=== PATIENT | male | born 1955 | race Caucasian/White ===

== ENCOUNTER → 2016-09-03 | Outpatient (CLI) | payer OTHER | END | disposition home or self-care (01) | LOC: LAB 08:45 | PROVIDERS: ATTEND Family Medicine | DX: Z02.89 Encounter for other administrative examinations (principal) | CPT/HCPCS: G0434 ==

== ENCOUNTER → 2018-05-28 | Outpatient (CLI) | payer OTHER, MEDICARE ==
[2018-05-28 10:35] LABS: Amphetamine Screen, Urine NEGATIVE (NEGATIVE); Barbiturate Scree,Urine NEGATIVE (NEGATIVE); Benzodiazephine Screen, Urine NEGATIVE (NEGATIVE); Cannabinoid Screen, Urine POSITIVE (NEGATIVE); Cocaine Screen, Urine NEGATIVE (NEGATIVE); Opiate Scree,Urine NEGATIVE (NEGATIVE); Phencyclidine Screen, Urine NEGATIVE (NEGATIVE)
== END | disposition home or self-care (01) ==
LOC: LAB 09:46
PROVIDERS: ATTEND Nurse Practitioner
DX: Z02.83 Encounter for blood-alcohol and blood-drug test (principal)
CPT/HCPCS: 80307

== ENCOUNTER → 2018-06-23 | Outpatient (CLI) | payer OTHER, MEDICARE ==
[2018-06-23 10:08] LABS: Basophils # (auto) 0 uL; Eosinophils # (auto) 0.1 uL; Hemoglobin 15.6 g/dL (13.5-17.5); Neutrophils % (auto) 75.4 % (37.0-80.0); Nucleated Red Blood Cells % 0.1 %
[2018-06-23 10:11] LABS: Basophils % (auto) 0.7 % (0.0-2.0); Eosinophils % (auto) 0.9 % (0.0-7.0); Hematocrit 45.1 % (41.0-53.0); Mean Corpuscular Hemoglobin 38.5 pg (28.0-32.0); Mean Corpuscular Hgb Conc. 34.6 g/dL (32.0-36.0); Mean Corpuscular Volume 111.2 fL (80.0-100.0); Monocytes # (auto) 0.6 uL; Neutrophils # (auto) 5.3 uL; Platelet Count (auto) 224 10^3/uL (140-450); Red Blood Cells 4.06 10^6/uL (4.5-5.90); White Blood Cell 7.1 10^3/uL (4.4-10.8)
[2018-06-23 11:18] LABS: Potassium 4.2 mmol/L (3.5-5.1)
[2018-06-23 11:27] LABS: Albumin 3.7 g/dL (3.4-5.0); BUN/Creatinine Ratio 9.1; Bilirubin, Total 0.9 mg/dL (0.2-1.0); Total Protein 7.6 g/dL (6.4-8.2)
[2018-06-25 10:13] LABS: Urine Bacteria NONE SEEN /hpf (None Seen); Urine Blood Negative /uL (Negative); Urine Mucus FEW (None Seen); Urine WBC 1 /hpf (0 - 3)
[2018-06-25 10:26] LABS: Alcohol, Urine < 3.0 mg/dL (0-5); Cannabinoid Screen, Urine NEGATIVE (NEGATIVE)
[2018-06-25 10:28] LABS: Amphetamine Screen, Urine NEGATIVE (NEGATIVE); Barbiturate Scree,Urine NEGATIVE (NEGATIVE); Benzodiazephine Screen, Urine NEGATIVE (NEGATIVE); Cocaine Screen, Urine NEGATIVE (NEGATIVE); Opiate Scree,Urine NEGATIVE (NEGATIVE); Phencyclidine Screen, Urine NEGATIVE (NEGATIVE)
== END | disposition home or self-care (01) ==
LOC: LAB 09:46
PROVIDERS: ATTEND Internal Medicine
DX: Z12.11 Encounter for screening for malignant neoplasm of colon (principal); I10 Essential (primary) hypertension; R74.8 Abnormal levels of other serum enzymes; M50.90 Cervical disc disorder, unspecified, unspecified cervical region
CPT/HCPCS: 36415; 80053; 80061; 80307; 81001; 82270; 84153; 84443; 85025

== ENCOUNTER 2019-05-21 07:43 | Inpatient (IN) | payer OTHER ==
[~2019-05-21] VITALS: Ht 172.7 cm; Wt 45.5 kg
[2019-05-21 08:44] LABS: Basophils # (auto) 0 uL; Basophils % (auto) 0.3 % (0.0-2.0); Eosinophils # (auto) 0 uL; Lymphocytes # (auto) 0.3 uL; Mean Corpuscular Hgb Conc. 34.2 g/dL (32.0-36.0); Nucleated Red Blood Cells % 0.1 %; White Blood Cell 11.9 10^3/uL (4.4-10.8)
[2019-05-21 08:46] LABS: Hematocrit 37.2 % (41.0-53.0); Hemoglobin 12.8 g/dL (13.5-17.5); Lymphocytes % (auto) 2.4 % (10.0-50.0); Mean Corpuscular Volume 110.9 fL (80.0-100.0); Monocytes % (auto) 8.1 % (0.0-12.0); Neutrophils # (auto) 10.6 uL; Neutrophils % (auto) 89.2 % (37.0-80.0); Platelet Count (auto) 211 10^3/uL (140-450); Red Blood Cells 3.36 10^6/uL (4.5-5.90); Red Cell Distribution Width 16.2 % (11.8-14.3)
[2019-05-21 08:58] LABS: Albumin 3.6 g/dL (3.4-5.0); Calcium 8.7 mg/dL (8.5-10.1); Potassium 3.3 mmol/L (3.5-5.1)
[2019-05-21 09:03] LABS: BUN/Creatinine Ratio 14.5; Bilirubin, Total 8.2 mg/dL (0.2-1.0); Total Protein 7.4 g/dL (6.4-8.2)
[2019-05-21] MEDS ORDERED: LABETALOL HCL 5 MG/ML ML 20ML VIAL IV ONE (09:15)
[2019-05-21] MEDS ORDERED: SODIUM CHLORIDE 0.9% 1,000 ML IV ONE (10:00)
[2019-05-21] MEDS ORDERED: ONDANSETRON HCL 4 MG/2 ML VIAL ONE (10:13)
[2019-05-21] MEDS ORDERED: ONDANSETRON HCL 4 MG/2 ML VIAL IV ONE (10:15)
[2019-05-21] MEDS ORDERED: FUROSEMIDE 40 MG/4 ML VIAL IV ONE (10:15)
[2019-05-21] MEDS ORDERED: ASPirin 81 mg TAB PO ONE (10:30)
[2019-05-21] MEDS: ASPirin 325 MG TAB PO SCH ×2 (10:45→15:37)
[2019-05-21] MEDS ORDERED: NITROGLYCERIN 0.4 MG SL TAB SL PRN (10:45)
[2019-05-21 11:13] LABS: Lactic Acid w/Reflex 6.9 mmol/L (0.4-2.0)
[2019-05-21] MEDS: MORPHINE SULF INJ 2 MG/ML SYRINGE 1ML IV PRN (11:33)
--- NOTE | 2019-05-21 11:42 | NUR ---
orders obtained from Dr. Prince 2g sodium cardiac diet. Orders read back and verified.
--- NOTE | 2019-05-21 11:55 | NUR ---
Telemetry admit from ER LEANNEVANNA admitted to Telemetry unit after SBAR received. Patient oriented to Kimi Major, primary RN, unit, room, bed, and unit policies regarding patient care and visiting hours. Patient now on continuous telemetry monitoring, tele box #12 and telemetry reading on arrival to unit is ST. Patient placed on bedside oxygen, weighed by bedscale and encouraged to call if they need something. All questions and concerns addressed, patient verbalized understanding. at bedside.
[2019-05-21 12:30] VITALS: BP 120/57
[2019-05-21 13:11] LABS: Albumin 3.5 g/dL (3.4-5.0); Bilirubin, Direct 2.5 mg/dL (0-0.2)
[2019-05-21] MEDS ORDERED: HYDR-4833 PO (13:12)
[2019-05-21 13:13] LABS: Bilirubin, Total 7.9 mg/dL (0.2-1.0); Total Protein 7.1 g/dL (6.4-8.2)
[2019-05-21] MEDS ORDERED: POTA1TAB61 PO (13:13)
[2019-05-21] MEDS ORDERED: BUME1TAB3 PO (13:18)
[2019-05-21] MEDS ORDERED: FURO20TA3 PO (13:18)
[2019-05-21] MEDS ORDERED: APIX5TAB PO (13:20)
--- NOTE | 2019-05-21 14:40 | NUR ---
Called Dr. Prince, patient' s HR has been sustaining in the high 140's. Blood pressure is as follows, 104/63, patient does not c/o chest pain. patient is diaphoretic. EKG in process.
--- NOTE | 2019-05-21 14:48 | NUR ---
EKG completed, reads abnormal afib with rapid ventricular response , HR at 134. MD aware.
[2019-05-21] MEDS ORDERED: FOLIC ACID 1 MG TAB PO ONE (15:15)
[2019-05-21] MEDS ORDERED: LORazepam 2MG/ML-1ML VIAL IV ONE (15:15)
[2019-05-21] MEDS ORDERED: cloNIDine HCL 0.1 MG TAB PO ONE (15:15)
[2019-05-21] MEDS ORDERED: chlordiazePOXIDE HCL 25 MG CAP PO ONE (15:15)
[2019-05-21] MEDS ORDERED: CEFTRIAXONE SODIUM 2 GM in D5W 5% 50 ML IV SCH (15:45)
--- NOTE | 2019-05-21 15:48 | NUR ---
Dr. Robison at bedside.
[2019-05-21 17:00] VITALS: BP 105/65
[2019-05-21] MEDS ORDERED: THIA100T5 PO (17:27)
[2019-05-21] MEDS ORDERED: cefTRIAXone 1GM/50ML D5W 50 ML IV ONE (17:30)
[2019-05-21] MEDS ORDERED: POTASSIUM CHL 10 Meq TABLET PO SCH (17:45)
[2019-05-21] MEDS ORDERED: FUROSEMIDE 40 MG TAB PO SCH (18:00)
[2019-05-21] MEDS: metroNIDAZOLE 500MG/100ML 100 ML IV SCH (18:16)
--- NOTE | 2019-05-21 19:00 | NUR ---
Opening Shift Note Assumed care of patient, awake and alert. No S/S of distress/SOB or pain. Instructed on POC and to call for assist PRN, will continue to monitor for changes Q1hr and PRN.
--- NOTE | 2019-05-21 19:08 | NUR ---
Closing Note Patient is comfortably resting in bed on 2L NC. No c/o pain, no s/s of distress/SOB noted. Bed at lowest locked position and call light within reach. at bedside. Will endorse care to NOC RN.
[2019-05-21] MEDS: FUROSEMIDE 40 MG TAB PO SCH (20:00)
[2019-05-21] MEDS: FOLIC ACID 1 MG, MULTIPLE VITAMIN 10 ML, MAGNESIUM SULF SDV 50% 8 MEQ, THIAMINE INJ 100... INJ SCH ×5 (20:00)
[2019-05-21] MEDS ORDERED: MAGNESIUM SULFATE 1GM/100ML 100 ML IV ONE (20:00)
--- NOTE | 2019-05-21 20:35 | NUR ---
IV insertion IV access obtained to left AC, via clean sterile technique by inserting 22 gauge catheter after second attempt. IV secured properly. No trauma to site. Patient tolerated well.
[2019-05-21] MEDS: cloNIDine HCL 0.1 MG TAB PO SCH (21:44)
[2019-05-21] MEDS: chlordiazePOXIDE HCL 25 MG CAP PO PRN (21:56)
[2019-05-21] MEDS: POTASSIUM CHL 20 Meq TABLET PO SCH (21:56)
[2019-05-21 22:00] VITALS: BP 95/72
[2019-05-22] MEDS: LORazepam 2MG/ML-1ML VIAL IV PRN ×3 (00:16→21:05)
--- NOTE | 2019-05-22 00:37 | NUR ---
Care endorsed to Florinda MARCUS.
--- NOTE | 2019-05-22 01:30 | NUR ---
Opening Shift Note: A&Ox4, but very drowsy. Currently on 2LO2 via NC, doesn't wear at home; pain level 0/10; and currently is moderate assist to the bathroom without assistive devices. Bed locked in lowest position, side rails up x2, call light within reach, and bed alarm on for patient safety. IV 22 g in left AC IID inserted on 05/21/19 and IV 20 g in right upper arm running a banana bag at 126 ml/hr inserted on 05/21/19. Skin: generalized bruising present. Patient's HR is very tachycardic, per report, patient's HR has been sustaining in the 150s. Will get updated EKG and vital signs.
[2019-05-22] MEDS: metroNIDAZOLE 500MG/100ML 100 ML IV SCH ×3 (01:52→18:04)
--- NOTE | 2019-05-22 02:00 | NUR ---
Page sent to Dr. [place] cosmetics and toiletries salesperson: Page sent for EKG: sinus tachycardia with short DE interval; left axis deviation; inferior infarct, age undetermined; abnormal EKG. Current vitals: temp 98.6, BP 112/76, RR 18, O2 94 % on 2LO2, HR 152, pain 0/10. Will await page return for possible orders.
--- NOTE | 2019-05-22 02:30 | NUR ---
Second page and page return: Page sent to Dr. Mao, search engine optimization strategist physician for Dr. Prince, for HR sustaining in the 150s. New order received for metoprolol 25 mg once. Will give and reassess patient status.
[2019-05-22] MEDS ORDERED: METOPROLOL TARTRATE 25 MG TAB ONE (02:49)
[2019-05-22] MEDS ORDERED: METOPROLOL TARTRATE 25 MG TAB PO ONE (03:00)
--- NOTE | 2019-05-22 04:30 | NUR ---
Page sent to Dr. Mao with [facility]: Patient's HR still sustaining in the 150s with no pain present after 25 mg of metoprolol PO given. Page sent for possible orders.
[2019-05-22 05:00] VITALS: BP 104/72
--- NOTE | 2019-05-22 05:00 | NUR ---
Another page sent to Dr. Mao at [facility] in regards to patient's HR sustaining in the 150s after 25 mg of metoprolol PO given. Will await page return for possible orders. Patient is still asymptomatic.
--- NOTE | 2019-05-22 05:24 | NUR ---
Page sent to sap consultant hospitalist for possible orders; unable to contact sap consultant heritage physician at this time.
--- NOTE | 2019-05-22 05:54 | NUR ---
Page return from Dr. Mao; no new orders at this time since patient is asymptomatic; page to television repairman hospitalist cancelled. Instructed to page Dr. Cornell at 0700
[2019-05-22] MEDS: FUROSEMIDE 40 MG TAB PO SCH ×2 (06:00→18:00)
--- NOTE | 2019-05-22 06:40 | NUR ---
Page from Dr. Mao: Hold lasix and give 10 mg of cardizem IV once if SBP is greater than 110.
[2019-05-22] MEDS ORDERED: DILTIAZEM HCL 25 MG/5 ML VIAL IV ONE (06:48)
--- NOTE | 2019-05-22 07:00 | NUR ---
Unable to give 10 mg of cardizem IVP once per Dr. Mao because SBP less than 110 per order.
--- NOTE | 2019-05-22 07:15 | NUR ---
Page to Dr. Prince: Per physician, give 30 mg of immediate-release cardizem PO Q6H: parameters hold if HR is less than 60 or if SBP is less than 100. One time dose put in and then Q6H from then. Per Dr. Prince, page sent to Dr. Cornell by day shift RN Gloria, for updated plan of care for cardiology.
[2019-05-22 07:22] LABS: Eosinophils # (auto) 0 uL; Lymphocytes # (auto) 0.8 uL; Mean Corpuscular Hemoglobin 37.4 pg (28.0-32.0); Neutrophils % (auto) 84.3 % (37.0-80.0); Red Blood Cells 3.21 10^6/uL (4.5-5.90)
[2019-05-22 07:25] LABS: Basophils # (auto) 0 uL; Basophils % (auto) 0.1 % (0.0-2.0); Eosinophils % (auto) 0.3 % (0.0-7.0); Hematocrit 36.2 % (41.0-53.0); Lymphocytes % (auto) 6.6 % (10.0-50.0); Mean Corpuscular Hgb Conc. 33.2 g/dL (32.0-36.0); Mean Corpuscular Volume 112.5 fL (80.0-100.0); Monocytes # (auto) 1.1 uL; Monocytes % (auto) 8.7 % (0.0-12.0); Neutrophils # (auto) 10.2 uL; Nucleated Red Blood Cells % 0.4 %; Platelet Count (auto) 195 10^3/uL (140-450); Red Cell Distribution Width 16.8 % (11.8-14.3); White Blood Cell 12.1 10^3/uL (4.4-10.8)
[2019-05-22] MEDS ORDERED: DILTIAZEM HCL 60 MG TAB PO ONE ×2 (07:30→15:00)
--- NOTE | 2019-05-22 07:30 | NUR ---
CARDIOLOGY CONSULT CALLED THE CONSULT IN FOR DR BETHEA, SPOKE WITH EDVIN
[2019-05-22 07:32] LABS: Albumin 3.3 g/dL (3.4-5.0); BUN/Creatinine Ratio 19.4; Calcium 8.5 mg/dL (8.5-10.1); Magnesium 2.5 mg/dL (1.6-2.6); Potassium 4.4 mmol/L (3.5-5.1)
[2019-05-22 07:35] LABS: Total Protein 6.5 g/dL (6.4-8.2)
[2019-05-22 08:00] VITALS: BP 104/72
--- NOTE | 2019-05-22 08:00 | NUR ---
ASSESSMENT NOTE PATIENT IS ALERT ORIENTED X4, RESTING IN BED COMFORTABLY, APPEAR VERY WEAK, HR AT 147, REFUSED TO EAT BREAKFAST, SELF REPOSITION NEEDED, PAIN 0/10, CALL LIGHT WITHIN REACH.
--- NOTE | 2019-05-22 08:05 | NUR ---
MARY KATE'S HR IS 147
[2019-05-22 08:10] VITALS: BP 94/73
[2019-05-22] MEDS: ASPirin 325 MG TAB PO SCH (08:34)
[2019-05-22] MEDS: BUMETANIDE 1 MG TAB PO SCH (08:35)
[2019-05-22] MEDS: cefTRIAXone 1GM/50ML D5W 50 ML IV SCH (08:36)
[2019-05-22] MEDS: cloNIDine HCL 0.1 MG TAB PO SCH ×2 (08:37→22:00)
[2019-05-22] MEDS: POTASSIUM CHL 20 Meq TABLET PO SCH ×2 (08:39→23:44)
--- NOTE | 2019-05-22 09:55 | NUR ---
DR MARIE \CALLED TO FOLLOW UP ON PT, INFORM ME THAT HE DID SPOKE WITH DR PINO, AND HE WANT HIM TO START ON AMIODARONE DRIP, DISCONTINUE CARDIZEM, AND TRANSFER PT TO [facility]
[2019-05-22] MEDS ORDERED: AMIODARONE HCL 150 MG in D5W 5% 100 ML IV ONE (10:00)
[2019-05-22] MEDS ORDERED: FOLIC ACID 1 MG TAB PO SCH (10:00)
--- NOTE | 2019-05-22 10:00 | NUR ---
FAMILY PATIENT'S AT BED SIDE
[2019-05-22] MEDS ORDERED: AMIODARONE HCL 900 MG in DEXTROSE 500 ML IV SCH (10:02)
--- NOTE | 2019-05-22 10:13 | NUR ---
DR MARIE IS HERE FOLLOWING UP ON PT, NEW ORDERS OBTAIN
[2019-05-22] MEDS ORDERED: FOLIC ACID 1 MG, MULTIPLE VITAMIN 10 ML, MAGNESIUM SULF SDV 50% 8 MEQ, THIAMINE INJ 100... INJ SCH ×5 (12:00)
[2019-05-22] MEDS ORDERED: DILTIAZEM HCL 60 MG TAB PO SCH (12:00)
[2019-05-22] MEDS: SODIUM CHLORIDE 0.9% 1,000 ML IV SCH ×2 (12:00→23:44)
[2019-05-22] MEDS: FOLIC ACID 1 MG, MULTIPLE VITAMIN 10 ML, MAGNESIUM SULF SDV 50% 8 MEQ, THIAMINE INJ 100... INJ SCH ×5 (12:00)
[2019-05-22 12:22] VITALS: BP 94/54
--- NOTE | 2019-05-22 13:30 | NUR ---
PAGE DR MARIE CALLED BACK, MADE AWARE THAT THE HR WENT DOWN FROM 147 TO 80-99 BEAT PER MINUTES, VERIFY WITH DR MARIE IF WE CAN DISCONTINUE THE TRANSFER [facility] ORDER, DR MARIE SAID TO KEEP THE ORDER ON HOLD, KEEP PATIENT ON OUR FLOOR HERE, AND IF THE HR WENT ABOVE THE NORMAL TO TRANSFER PT TO [facility], DR MARIE DID ACTIVATED THE CARDIZEM ORDER AGAIN.CONTINUE MONITORING
[2019-05-22] MEDS: NICOTINE 14 MG/24HR TOPICAL PATCH TD SCH (14:58)
[2019-05-22] MEDS: AMIODARONE HCL 900 MG in DEXTROSE 500 ML IV SCH (16:02)
[2019-05-22 16:17] VITALS: BP 111/56
[2019-05-22] MEDS: DILTIAZEM HCL 60 MG TAB PO SCH ×2 (18:03→23:44)
[2019-05-22] MEDS: MORPHINE SULF INJ 2 MG/ML SYRINGE 1ML IV PRN (18:05)
--- NOTE | 2019-05-22 18:25 | NUR ---
PATIENT CONTINUE STABLE, HR AT THIS TIME BETWEEN 75-90 CONTINUE MONITORING
--- NOTE | 2019-05-22 19:00 | NUR ---
DR MARIE CALLED TO FOLLOW UP ON PT WITH NEW ORDERS
--- NOTE | 2019-05-22 19:30 | NUR ---
received pt from day rn poc reviewed
--- NOTE | 2019-05-22 19:50 | NUR ---
pt resting c/o anxiety denies chest pain, resp even and unlabored on 2l, repositioned with hob up, tele monitor reading afib 75,
--- NOTE | 2019-05-22 21:21 | NUR ---
medicated with ativan for c/o anxiety
[2019-05-22 22:00] VITALS: BP 80/52
--- NOTE | 2019-05-22 22:09 | NUR ---
i paged Dr Prince regarding the pts CHELSEY status as requested by charge nurse, pts hr wnl 70-75 b/p 81/52, Dr Gill returned call stated to let pt stay chelsey status at this time r/t low b/p.
[2019-05-23] VITALS (8 sets, daily range): BP systolic 77–112; BP diastolic 48–77
[2019-05-23] MEDS: metroNIDAZOLE 500MG/100ML 100 ML IV SCH ×3 (02:20→17:44)
--- NOTE | 2019-05-23 03:53 | NUR ---
pt resting comfortable no c/o cp, hr remains 71 a flutter
[2019-05-23] MEDS: FUROSEMIDE 40 MG TAB PO SCH ×2 (06:00→17:45)
[2019-05-23] MEDS: DILTIAZEM HCL 60 MG TAB PO SCH ×3 (06:00→17:44)
--- NOTE | 2019-05-23 06:38 | NUR ---
pts hr remains 72-75 aflutter all night, b/p remains low 84/48 no c/o discomfort or chest pain will continue to monitor and report off to am nurse, pt remains chelsey status per doctors orders
--- NOTE | 2019-05-23 06:52 | NUR ---
report given to am nurse poc reviewed
[2019-05-23 07:42] LABS: Eosinophils # (auto) 0.1 uL; Hemoglobin 10.5 g/dL (13.5-17.5); Lymphocytes # (auto) 1.1 uL; Mean Corpuscular Hemoglobin 38.9 pg (28.0-32.0)
[2019-05-23 07:44] LABS: Basophils # (auto) 0.1 uL; Eosinophils % (auto) 1.9 % (0.0-7.0); Hematocrit 29.8 % (41.0-53.0); Lymphocytes % (auto) 16.6 % (10.0-50.0); Mean Corpuscular Hgb Conc. 35.2 g/dL (32.0-36.0); Mean Corpuscular Volume 110.5 fL (80.0-100.0); Monocytes # (auto) 0.6 uL; Monocytes % (auto) 8.1 % (0.0-12.0); Neutrophils # (auto) 4.9 uL; Neutrophils % (auto) 72.4 % (37.0-80.0); Nucleated Red Blood Cells % 0.2 %; Platelet Count (auto) 143 10^3/uL (140-450); Red Blood Cells 2.69 10^6/uL (4.5-5.90); Red Cell Distribution Width 16.3 % (11.8-14.3); White Blood Cell 6.8 10^3/uL (4.4-10.8)
[2019-05-23 07:51] LABS: Albumin 2.9 g/dL (3.4-5.0)
[2019-05-23 07:55] LABS: BUN/Creatinine Ratio 27.6; Calcium 7.7 mg/dL (8.5-10.1); Potassium 3.7 mmol/L (3.5-5.1)
[2019-05-23 07:56] LABS: Bilirubin, Direct 1.5 mg/dL (0-0.2); Bilirubin, Total 2.1 mg/dL (0.2-1.0); Total Protein 5.8 g/dL (6.4-8.2)
--- NOTE | 2019-05-23 08:00 | NUR ---
ASSESSMENT NOTE PATIENT IS ALERT ORIENTED X4, RESTING IN BED COMFORTABLY, APPEAR VERY WEAK, HR AT 75, REFUSED TO EAT BREAKFAST, SELF REPOSITION NEEDED, PAIN 0/10, CALL LIGHT WITHIN REACH.
[2019-05-23] MEDS: cefTRIAXone 1GM/50ML D5W 50 ML IV SCH (08:53)
[2019-05-23 08:56] LABS: Urine Amorphous Crystal FEW /hpf (None Seen); Urine Bacteria FEW /hpf (None Seen); Urine Blood 2+ /uL (Negative); Urine Mucus FEW (None Seen); Urine Specific Gravity 1.014 (1.001-1.035); Urine WBC 3 /hpf (0 - 3)
[2019-05-23] MEDS: ASPirin 325 MG TAB PO SCH (09:00)
[2019-05-23] MEDS: BUMETANIDE 1 MG TAB PO SCH (09:00)
[2019-05-23] MEDS: POTASSIUM CHL 20 Meq TABLET PO SCH ×2 (09:00→22:21)
--- NOTE | 2019-05-23 09:00 | NUR ---
BREAKFAST PT REFUSED, STATED , I DON'T EAT [place] FOOD WHILE I AM AT THE HOSPITAL>
[2019-05-23] MEDS: NICOTINE 14 MG/24HR TOPICAL PATCH TD SCH (09:01)
--- NOTE | 2019-05-23 09:20 | NUR ---
FAMILY PT ' AT BED SIDE
[2019-05-23] MEDS: cloNIDine HCL 0.1 MG TAB PO SCH ×2 (10:00→22:00)
--- NOTE | 2019-05-23 10:15 | NUR ---
HR START TO GO UP AT 134. CONTINUE MONITORING PT CLOSELY
[2019-05-23] MEDS: MORPHINE SULF INJ 2 MG/ML SYRINGE 1ML IV PRN ×2 (10:30→23:21)
[2019-05-23] MEDS ORDERED: MIDODRINE HCL 10 MG TAB PO ONE (12:15)
--- NOTE | 2019-05-23 12:16 | NUR ---
DR MARIE CALLED TO FOLLOW UP ON PT MADE AWARE THAT THE HR RATE IN RESTING IS 100 B/MIN, AND WHEN PT TRYING TO EAT OR USE THE URINAL HR GO UP TO 150, NEW ORDERS OBTAIN FROM DR MARIE, ALSO INFORM ME THAT DR BETHEA WILL BE HERE SOON.
[2019-05-23] MEDS: FOLIC ACID 1 MG, MULTIPLE VITAMIN 10 ML, MAGNESIUM SULF SDV 50% 8 MEQ, THIAMINE INJ 100... INJ SCH ×5 (12:53)
[2019-05-23] MEDS: SODIUM CHLORIDE 0.9% 1,000 ML IV SCH (12:55)
--- NOTE | 2019-05-23 15:03 | NUR ---
DR BETHEA CALLED TO FOLLOW UP ON PT, MADE AWARE THAT HR IS BACK AGAIN TO 75B/MIN
--- NOTE | 2019-05-23 15:15 | NUR ---
DR BETHEA AT BED SIDE FOLLOWING UP ON PT
[2019-05-23] MEDS: AMIODARONE HCL 900 MG in DEXTROSE 500 ML IV SCH (16:02)
--- NOTE | 2019-05-23 17:30 | NUR ---
PATIENT OUT TO SMOKE, AT HIS SIDE, NO DISTRESS NOTED
--- NOTE | 2019-05-23 17:40 | NUR ---
PT IS BACK TO HIS ROOM, NO DISTRESS NOTED
[2019-05-23] MEDS: chlordiazePOXIDE HCL 25 MG CAP PO PRN (17:46)
--- NOTE | 2019-05-23 18:19 | NUR ---
PT CONTINUE STABLE, NO DISTRESS NOTED
--- NOTE | 2019-05-23 18:27 | NUR ---
DR MARIE I S HERE FOLLOWING UP ON PT, MADE AWARE OF ALL PT UPDATE
--- NOTE | 2019-05-23 19:09 | NUR ---
received pt from day rn poc reviewed
[2019-05-23] MEDS: MIDODRINE HCL 10 MG TAB PO SCH (22:11)
--- NOTE | 2019-05-23 22:51 | NUR ---
pt resting with hob up resp even and unlabored, denies chest discomfort, all questions and concerns addressed, hr 71 sr, b/p 96/63 assist pt to bathroom, c/o pain general areas 04/03 will medicate as ordered
[2019-05-24] MEDS: DILTIAZEM HCL 60 MG TAB PO SCH ×3 (00:15→12:36)
--- NOTE | 2019-05-24 03:54 | NUR ---
pt is npo for hida scan this morning
[2019-05-24] MEDS: metroNIDAZOLE 500MG/100ML 100 ML IV SCH ×2 (04:48→11:58)
[2019-05-24] MEDS: SODIUM CHLORIDE 0.9% 1,000 ML IV SCH ×2 (04:49→15:35)
[2019-05-24 05:00] VITALS: BP 96/61
--- NOTE | 2019-05-24 06:01 | NUR ---
pts am meds given as ordered, pt is npo this morning
[2019-05-24] MEDS: FUROSEMIDE 40 MG TAB PO SCH (06:45)
--- NOTE | 2019-05-24 06:45 | NUR ---
pt up ambulate to bathroom hr increased to [address]
--- NOTE | 2019-05-24 06:56 | NUR ---
report given to am nurse poc reviewed
--- NOTE | 2019-05-24 07:35 | NUR ---
OPENING NOTE Assumed care of patient from NOC RNTamika. Patient awake and alert with no S/S of distress/SOB or pain. Instructed on POC and to call for assist PRN, verbalized understanding. Bed in lowest, locked position with side rails up x2. Fall precautions in place and call light within reach. Will continue to monitor for changes Q1hr and PRN.
[2019-05-24 08:08] LABS: Hematocrit 32.3 % (41.0-53.0); Hemoglobin 11.1 g/dL (13.5-17.5)
[2019-05-24 08:10] LABS: Mean Corpuscular Hemoglobin 38.4 pg (28.0-32.0); Mean Corpuscular Hgb Conc. 34.3 g/dL (32.0-36.0); Mean Corpuscular Volume 112.1 fL (80.0-100.0); Platelet Count (auto) 180 10^3/uL (140-450); Red Blood Cells 2.88 10^6/uL (4.5-5.90); Red Cell Distribution Width 16.8 % (11.8-14.3); White Blood Cell 8.2 10^3/uL (4.4-10.8)
--- NOTE | 2019-05-24 08:20 | NUR ---
OFF UNIT Patient taken off unit via wheelchair for ordered HIDA scan. No S/S of distress noted.
[2019-05-24 08:27] LABS: Albumin 3.1 g/dL (3.4-5.0)
[2019-05-24 08:29] LABS: Basophils % (manual) 0 (0.0-2.0); Blast Cells 0; Eosinophils % (manual) 0 (0-7); Metamyelocytes % 0; Myelocytes % 0; Promyelocytes % 0; Reactive Lymphocytes 0
[2019-05-24 08:33] LABS: Bilirubin, Total 2.5 mg/dL (0.2-1.0); Total Protein 6.1 g/dL (6.4-8.2)
[2019-05-24 09:00] VITALS: BP 108/57
[2019-05-24 09:09] LABS: Bilirubin, Direct 1.6 mg/dL (0-0.2)
[2019-05-24 09:48] LABS: Band Neutrophils % (manual) 2; Lymphocytes % (manual) 16 (10.0-50.0); Monocytes % (manual) 12 (0-12)
[2019-05-24] MEDS: NICOTINE 14 MG/24HR TOPICAL PATCH TD SCH (10:43)
[2019-05-24] MEDS: POTASSIUM CHL 20 Meq TABLET PO SCH (10:43)
[2019-05-24] MEDS: MIDODRINE HCL 10 MG TAB PO SCH (10:44)
[2019-05-24] MEDS: cloNIDine HCL 0.1 MG TAB PO SCH (10:44)
[2019-05-24] MEDS: ASPirin 325 MG TAB PO SCH (10:44)
[2019-05-24] MEDS: cefTRIAXone 1GM/50ML D5W 50 ML IV SCH (10:44)
--- NOTE | 2019-05-24 12:20 | NUR ---
PAGED Left message with Dr. Cornell's exchange per Dr. Ewing's request for ECHO results. Awaiting call back.
[2019-05-24] MEDS ORDERED: FOLI1TAB6 PO (12:34)
[2019-05-24] MEDS ORDERED: BUME1TAB3 PO (12:34)
[2019-05-24] MEDS: FOLIC ACID 1 MG, MULTIPLE VITAMIN 10 ML, MAGNESIUM SULF SDV 50% 8 MEQ, THIAMINE INJ 100... INJ SCH ×5 (12:36)
[2019-05-24] MEDS ORDERED: IPR002IS HHN (12:38)
[2019-05-24] MEDS ORDERED: ALBU1.257 IN (12:38)
[2019-05-24] MEDS ORDERED: PANT40TA2 PO (12:39)
[2019-05-24 13:00] VITALS: BP 118/57
[2019-05-24 13:04] LABS: INR 1.27 (0.9-1.15)
--- NOTE | 2019-05-24 13:40 | NUR ---
SS Spoke with CHUCKIE, Lani, informed that patient does not want home health or safety evaluation,"I don't want strangers in my house". Patient states that he is willing to receive the nebulizer.
--- NOTE | 2019-05-24 15:27 | NUR ---
Discharge planning per SS consult, patient has orders for home health and a nebulizer. Per nurse Dalton, patient is refusing home health and the [facility] camacho...Called [facility], spoke with Holden and was advised that she set patient up with home health, and he can refuse once they call,a nd that she placed the order with [employer] for the nebulizer and they will deliver it to the patient's home. Nurse Dalton was advised of the dc plan. Addendum: 05/24/19 at 1534 by ANDRIY CARMONA Amended: Links added.
[2019-05-24] MEDS: AMIODARONE HCL 900 MG in DEXTROSE 500 ML IV SCH (16:02)
--- NOTE | 2019-05-24 16:20 | NUR ---
DISCHARGE Discharge instructions given as ordered. Encouraged to follow up with PMD and Cardiology as instructed. All questions and concerns addressed. Patient verbalized understanding. Medication reconciliation form completed and copy given to patient. IV removed with catheter intact and pressure dressing applied. Telemetry unit returned to ICU. Patient taken to vehicle via wheelchair with all personal belongings, accompanied by staff and family member. No distress noted at time of departure.
[2019-05-24 17:00] VITALS: BP 118/57
== END 2019-05-24 16:20 | disposition home or self-care (01) | DRG 292 ==
LOC: ER 07:43 → TELE 07:44 → TELE-EAST 12:26
PROVIDERS: ADMIT Internal Medicine; ATTEND Internal Medicine
DX: I11.0 Hypertensive heart disease with heart failure (principal); E87.1 Hypo-osmolality and hyponatremia; I48.92 Unspecified atrial flutter; J44.0 Chronic obstructive pulmonary disease with (acute) lower respiratory infection; N17.9 Acute kidney failure, unspecified; K76.1 Chronic passive congestion of liver; I50.43 Acute on chronic combined systolic (congestive) and diastolic (congestive) heart failure; E87.6 Hypokalemia; J20.9 Acute bronchitis, unspecified; I35.0 Nonrheumatic aortic (valve) stenosis; F10.10 Alcohol abuse, uncomplicated; I25.2 Old myocardial infarction; F17.210 Nicotine dependence, cigarettes, uncomplicated; F12.90 Cannabis use, unspecified, uncomplicated; I48.2 Chronic atrial fibrillation; Z99.81 Dependence on supplemental oxygen; Y90.9 Presence of alcohol in blood, level not specified; E78.5 Hyperlipidemia, unspecified; Z86.79 Personal history of other diseases of the circulatory system; Z79.899 Other long term (current) drug therapy
CPT/HCPCS: 36415; 71045; 74176; 76700; 78226; 80048; 80053; 80076; 81001; 82962; 83605; 83735; 83880; 84484; 85007; 85025; 85027; 85610; 87040; 87081; 87086; 93005; 93306; 94761; 96361; 96374; 96375; 99291; G0378; J0696; J2405; J3490; J7060

== ENCOUNTER 2019-06-30 18:01 | Inpatient (IN) | payer OTHER ==
[~2019-06-30] VITALS: Ht 172.7 cm; Wt 64.2 kg
[~2019-06-30 18:01] MED LIST: ALBU1.257 IN; APIX5TAB PO; BUME1TAB3 PO; FOLI1TAB6 PO; FURO20TA3 PO; HYDR-4833 PO; IPR002IS HHN; PANT40TA2 PO; POTA1TAB61 PO; THIA100T5 PO
[2019-06-30 19:32] LABS: Albumin 3.1 g/dL (3.4-5.0); Anion Gap 9 (5-15); Blood Urea Nitrogen 15 mg/dL (7-18); Calcium 8.2 mg/dL (8.5-10.1); Carbon Dioxide 31 mmol/L (21-32); Chloride 91 mmol/L (98-107); Glucose 102 mg/dL (74-106); Magnesium 1.8 mg/dL (1.6-2.6); Sodium 131 mmol/L (136-145)
[2019-06-30 19:33] LABS: INR 1.32 (0.9-1.15); Partial Thromboplastin Time 36.6 sec (23.64-32.05)
[2019-06-30 19:34] LABS: Alanine Aminotransferase 32 U/L (16-61); Aspartate Aminotransferase 63 U/L (15-37); BUN/Creatinine Ratio 15.8; GFR African American 103 mL/min; GFR Non-African American 85 mL/min
[2019-06-30 19:39] LABS: Alkaline Phosphatase 293 U/L (45-117); Bilirubin, Total 4.3 mg/dL (0.2-1.0); Total Protein 6.5 g/dL (6.4-8.2)
[2019-06-30 19:43] LABS: Basophils # (auto) 0 uL; Basophils % (auto) 0.3 % (0.0-2.0); Eosinophils # (auto) 0 uL; Eosinophils % (auto) 0.1 % (0.0-7.0); Hemoglobin 10.3 g/dL (13.5-17.5); Lymphocytes # (auto) 0.6 uL; Lymphocytes % (auto) 4.7 % (10.0-50.0); Mean Corpuscular Hemoglobin 33.4 pg (28.0-32.0); Mean Corpuscular Hgb Conc. 33.3 g/dL (32.0-36.0); Mean Corpuscular Volume 100.4 fL (80.0-100.0); Monocytes # (auto) 0.9 uL; Monocytes % (auto) 7.4 % (0.0-12.0); Neutrophils # (auto) 10.5 uL; Neutrophils % (auto) 87.5 % (37.0-80.0); Platelet Count (auto) 173 10^3/uL (140-450); Red Blood Cells 3.09 10^6/uL (4.5-5.90)
[2019-06-30] MEDS ORDERED: ONDANSETRON HCL 4 MG/2 ML VIAL IV ONE (21:00)
[2019-06-30] MEDS ORDERED: MORPHINE SULF INJ 2 MG/ML SYRINGE 1ML IV ONE (21:00)
[2019-06-30] MEDS ORDERED: POTASSIUM CHL 20 Meq TABLET PO ONE ×2 (21:45→22:30)
[2019-06-30] MEDS ORDERED: ONDANSETRON HCL 4 MG/2 ML VIAL IV PRN (22:30)
[2019-06-30] MEDS ORDERED: NITROGLYCERIN 0.4 MG SL TAB SL PRN (22:30)
[2019-06-30 23:29] VITALS: BP 107/56
[2019-07-01] VITALS (8 sets, daily range): BP systolic 101–132; BP diastolic 57–85
[2019-07-01] MEDS ORDERED: FURO1TAB31 PO (00:14)
[2019-07-01] MEDS ORDERED: BUME2TAB5 PO (00:15)
[2019-07-01] MEDS ORDERED: HYDR-392 PO (00:19)
[2019-07-01] MEDS ORDERED: IPRATROPIUM BROM 0.5 MG/2.5ML INH SOL ONE ×2 (00:37→06:02)
[2019-07-01] MEDS ORDERED: ALBUTEROL SULF 2.5 MG/0.5ML(0.5%) NEB SOLN ONE ×2 (00:37→06:02)
[2019-07-01] MEDS ORDERED: TIZA4CAP PO (00:46)
[2019-07-01] MEDS: ALBUTEROL SULF 2.5 MG/0.5ML(0.5%) NEB SOLN NEB SCH ×3 (00:47→12:45)
[2019-07-01] MEDS: IPRATROPIUM BROM 0.5 MG/2.5ML INH SOL NEB SCH ×3 (00:47→12:45)
--- NOTE | 2019-07-01 00:48 | NUR ---
Respiratory note: PT REFUSE SCHEDULED MED NEB AT THIS TIME, PT STATES MED NEBS MAKE PT WORSE, STATES THEY DONT HELP HIM, PT DENIES SOB AT THIS TIME, NO RESP DISTRESS NOTED, PULSE OX 97% ON 3LNC, HR 114, RR 20, BILATERAL BS EXP WHEEZE
--- NOTE | 2019-07-01 00:58 | NUR ---
PATIENT C/O 10 BACK PAIN REQUESTING PAIN MEDICATION. PAGED ONCALL DR Moustapha LIMON FOR ORDERS. RECEIVED ORDER TYLENOL 650MG PO Q6HR PRNS FOR PAIN AND CARDAIC DIET. PATIENT IS HYPOTENSIVE DR LIMON REFUSES TO ORDER ANY NARCOTICS, MAIN GOAL TO DIURESE PATIENT. TORBO.
[2019-07-01] MEDS ORDERED: ACETAMINOPHEN 325 MG TAB PO PRN (01:00)
[2019-07-01] MEDS: FUROSEMIDE 20 MG/2 ML VIAL IV SCH ×2 (02:00→06:23)
--- NOTE | 2019-07-01 03:36 | NUR ---
TACHYCARDIA PATIENT HR 130-160. PATIENT STANDING UP TO URINATE STARTED ON LASIX. OBTAINED EKG HR 130 AFIB. CALLED LISSY LIMON CURRENT BP 122/74 HR 130 O2SAT 99%. RECEIVED ORDER FOR LASIX 40MG IVP NOW. DR LIMON SAYS PT HAS HISTORY OF AFIB. INFORMED HER IF SHE WANTED ANYTHING TO HELP CONTROL HIS HR AND STATES JUST THE LASIX. TORBO.
[2019-07-01] MEDS ORDERED: FUROSEMIDE 40 MG/4 ML VIAL IV ONE (03:45)
--- NOTE | 2019-07-01 05:00 | NUR ---
TACHYCARDIA PATIENT HR 160, PATIENT LYING IN BED. CURRENT BP132/85 HR 134. PAGED ONCBENEDICTO LIMON, PHYSICIAN EXCHANGE LEFT MESSAGE AWAITING CALL BACK.
--- NOTE | 2019-07-01 06:28 | NUR ---
RT NOTE: WENT TO PTS ROOM TO ADMINISTER BREATHING TX. PT STATED THAT HE DID NOT WANT HIS TX, THAT IT DOES NOT DO ANYTHING FOR HIM AND MAKES IT HARDER FOR HIM TO BREATH. PT AWARE TO CALL IF HE IS HAVING ANY SOB. RR-18, SPO2 99% ON 2L NC, HR 120. WILL CONTINUE TO MONITOR PT.
[2019-07-01 07:12] LABS: Basophils # (auto) 0.1 uL; Basophils % (auto) 0.5 % (0.0-2.0); Eosinophils # (auto) 0 uL; Eosinophils % (auto) 0.3 % (0.0-7.0); Hematocrit 32.9 % (41.0-53.0); Hemoglobin 10.9 g/dL (13.5-17.5); Lymphocytes # (auto) 0.8 uL; Lymphocytes % (auto) 5.9 % (10.0-50.0); Mean Corpuscular Hemoglobin 33.1 pg (28.0-32.0); Mean Corpuscular Volume 100.3 fL (80.0-100.0); Monocytes # (auto) 1.1 uL; Monocytes % (auto) 8.2 % (0.0-12.0); Neutrophils # (auto) 11.4 uL; Neutrophils % (auto) 85.1 % (37.0-80.0); Platelet Count (auto) 203 10^3/uL (140-450); Red Blood Cells 3.28 10^6/uL (4.5-5.90); Red Cell Distribution Width 18.5 % (11.8-14.3); White Blood Cell 13.4 10^3/uL (4.4-10.8)
[2019-07-01 07:28] LABS: Albumin 2.8 g/dL (3.4-5.0); Anion Gap 8 (5-15); BUN/Creatinine Ratio 17.1; Blood Urea Nitrogen 19 mg/dL (7-18); Calcium 8.3 mg/dL (8.5-10.1); Carbon Dioxide 27 mmol/L (21-32); Chloride 96 mmol/L (98-107); GFR African American 86 mL/min; GFR Non-African American 71 mL/min; Glucose 100 mg/dL (74-106); Potassium 4.1 mmol/L (3.5-5.1); Sodium 131 mmol/L (136-145)
[2019-07-01 07:38] LABS: Alanine Aminotransferase 35 U/L (16-61); Alkaline Phosphatase 300 U/L (45-117); Aspartate Aminotransferase 68 U/L (15-37); Bilirubin, Total 4.6 mg/dL (0.2-1.0); Total Protein 6.6 g/dL (6.4-8.2)
[2019-07-01] MEDS ORDERED: CARVEDILOL 3.125 MG TAB PO ONE (08:15)
[2019-07-01] MEDS ORDERED: CARVEDILOL 3.125 MG TAB PO SCH (10:00)
[2019-07-01] MEDS ORDERED: POTASSIUM CHL 20 Meq TABLET PO SCH (10:00)
[2019-07-01] MEDS ORDERED: AMIODARONE HCL 200 MG TAB PO SCH (10:00)
[2019-07-01] MEDS ORDERED: APIXABAN 5 MG TAB PO SCH (10:00)
[2019-07-01] MEDS ORDERED: BUMETANIDE 1 MG TAB PO SCH (10:00)
[2019-07-01] MEDS ORDERED: LEVOFLOXACIN 500MG 100 ML IV SCH (10:00)
[2019-07-01] MEDS ORDERED: PANTOPRAZOLE 40 MG TAB PO SCH (10:00)
--- NOTE | 2019-07-01 10:01 | NUR ---
Paged Patient c/o generalized pain and rates it 06/03. Awaiting call back. Addendum: 07/01/19 at 1046 by Kimi Major RN Orders received for pain medications. orders read back and verified.
[2019-07-01] MEDS ORDERED: HYDROmorphone HCL 2 MG/ML VL IV ONE (10:15)
[2019-07-01] MEDS ORDERED: IOHEXOL 350 MG/ML 100ML IJ ONE (10:32)
[2019-07-01] MEDS: HYDROcodone-ACET 7.5/325MG TAB PO PRN ×2 (10:40→16:27)
--- NOTE | 2019-07-01 10:40 | NUR ---
Dr. Prince at bedside.
--- NOTE | 2019-07-01 11:50 | NUR ---
CALLED DR FRANK BORGES MADE AWARE OF RESULTS FROM THE CT PULMONARY ANGIOGRAM Signed: 07/01/19 at 1218 by INA DURAN <Co-Signature Required> Co-Signed: 07/01/19 at 1218 by Kimi Major RN
--- NOTE | 2019-07-01 11:58 | NUR ---
PAGED DR MUNIZ REGARDING CT ANGIOGRAM RESULTS. NO ANSWER. AWAITING CALL BACK Signed: 07/01/19 at 1240 by INA DURAN <Co-Signature Required> Co-Signed: 07/01/19 at 1240 by Kimi Major RN
[2019-07-01] MEDS ORDERED: Ensure HIGH Protein Chocolate 8oz Bottle PO SCH (12:00)
--- NOTE | 2019-07-01 12:29 | NUR ---
1220 07/01/19 I received a call from [facility] Psychologist Personnel Cammy that this patient needs to transfer to higher level of care-and that she is reaching out to [facility] per her doctor's request. I faxed transfer to higher level of care order along with clinical information to [facility]. I spoke with patient's primary nurse and made her aware that I was reaching out to [facility] as well.
[2019-07-01] MEDS ORDERED: PANTOPRAZOLE 40 MG TAB PO ONE (12:45)
[2019-07-01] MEDS ORDERED: LEVOFLOXACIN 500MG 100 ML IV ONE (12:45)
[2019-07-01] MEDS ORDERED: APIXABAN 5 MG TAB PO ONE (12:45)
--- NOTE | 2019-07-01 12:45 | NUR ---
RT NOTE: WENT TO PTS ROOM TO ADMINISTER BREATHING TX. PT STATED THAT HE DID NOT WANT HIS TX, THAT IT DOES NOT DO ANYTHING FOR HIM AND MAKES IT HARDER FOR HIM TO BREATH. PT AWARE TO CALL IF HE IS HAVING ANY SOB. RR-18, SPO2 98% ON 3L NC, HR 55. WILL CONTINUE TO MONITOR PT
--- NOTE | 2019-07-01 13:02 | NUR ---
1300 07/01/19 I called [facility] (for [facility]) and spoke with Edwar, he said that Altagracia is working on this case, verifying insurance/speaking with their cardio-thoracic MD and she will give me a call back with an update.
--- NOTE | 2019-07-01 13:12 | NUR ---
LELIA FOR DR. MERCADO. PATIENT STATES MD ASKED HIM TO REFUSE TRANSFERRING TO ANY HOSPITAL THAT IS NOT [facility]. PATIENT IS UPSET AND IS THREATENING TO LEAVE THE HOSPITAL IF THIS IS NOT TAKEN CARE OF. LEFT A MESSAGE TO ON [facility] AWAITING CALL BACK. Addendum: 07/01/19 at [address]2 by Kimi Major RN DR. MCMAHON RECOMMENDS PATIENT TO BE TRANSFERRED TO [facility]. WILL NOTIFY DR. AGRAWAL.
--- NOTE | 2019-07-01 13:13 | NUR ---
1310 07/01/19 I received a call from Altagracia at [facility] transfer center letting me know that their cardio-thoracic MD Dr. Cristi Aldana is accepting the patient, she is just waiting for a call back from their electrical logging operator Dr. Del Angel to verify that he is accepting the patient as well-she will call me back with an update.
--- NOTE | 2019-07-01 14:00 | NUR ---
NOTIFIED MRS. PERDOMO REGARDING TRANSFER . PATIENT IS BEING TRANSFERRED TO [facility] ROOM 402 , ACCEPTING MD BLANC.
--- NOTE | 2019-07-01 14:32 | NUR ---
1430 07/01/19 I received a call from Altagracia at [facility]-patient will be going to room 402, accepting MD is Dr. Yusuf-nurse to call report to [phone], per Dr. Baugh patient okay to be transported by ambulance. [facility] warp picker time is 1600, with authorization number [id number] provided by [facility] Programming Instructor Cammy. I relayed this information to nurse Lee.
--- NOTE | 2019-07-01 15:10 | NUR ---
TRANSFER REPORT REPORT GIVEN TO PAULINO MARCUS AT [phone]. ETA IS SET FOR 1600.
--- NOTE | 2019-07-01 16:57 | NUR ---
Discharge Transfers Patient is being transferred to [facility] via [facility]. Patient is to follow up with accepting doctor Paramjit. has been notified. Patient is calm, no s/s of distress/SOB noted/stated.
[2019-07-01] MEDS ORDERED: FUROSEMIDE 40 MG/4 ML VIAL IV SCH (18:00)
[2019-07-01] MEDS ORDERED: SPIRONOLACTONE 25 MG TAB PO SCH (18:00)
== END 2019-07-01 16:57 | disposition short-term general hospital (02) | DRG 308 ==
LOC: ER 18:01 → TELE-CENTR 18:02 → ER 22:53
PROVIDERS: ADMIT Internal Medicine; ATTEND Internal Medicine
DX: I48.91 Unspecified atrial fibrillation (principal); I50.43 Acute on chronic combined systolic (congestive) and diastolic (congestive) heart failure; I11.0 Hypertensive heart disease with heart failure; D63.8 Anemia in other chronic diseases classified elsewhere; E87.6 Hypokalemia; F17.210 Nicotine dependence, cigarettes, uncomplicated; J43.9 Emphysema, unspecified; I71.2 Thoracic aortic aneurysm, without rupture; I50.82 Biventricular heart failure; I27.29 Other secondary pulmonary hypertension; Z95.1 Presence of aortocoronary bypass graft; Z79.899 Other long term (current) drug therapy; Z88.5 Allergy status to narcotic agent
CPT/HCPCS: 36415; 71045; 71275; 80053; 83735; 83880; 84484; 85025; 85379; 85610; 85730; 93005; 94761; 96365; 96375; G0378; J1956; J2405